=== PATIENT | male | born 1990 | race African-American/Black ===

== ENCOUNTER 2017-09-27 10:15 | Emergency (ER) | payer MEDICAID ==
[~2017-09-27] VITALS: Ht 180.3 cm; Wt 71.0 kg
[2017-09-27 15:10] VITALS: BP 120/67
== END 2017-09-27 15:11 | disposition home or self-care (01) ==
LOC: ER 10:40
DX: J30.9 Allergic rhinitis, unspecified (principal); B34.9 Viral infection, unspecified; R09.82 Postnasal drip; F17.290 Nicotine dependence, other tobacco product, uncomplicated
CPT/HCPCS: 71045; 99283